=== PATIENT | male | born 1975 | race Caucasian/White ===

== ENCOUNTER 2022-11-24 07:23 | Outpatient (OUT) | payer OTHER, SELFPAY ==
--- NOTE | 2022-11-24 07:33 | XR_ITS ---
The [address] [address] Patient Name: RUSTY NGUYEN MRN: [id number] date: 1975 Sex: M Assigned Patient Location: [facility] Current Patient Location: [facility] Accession/Order Number: [id number] Exam Date: 11/24/2022 07:35 Report Date: 11/24/2022 08:54 At the request of: СЕРГЕЙ LOPEZ Procedure: XR ankle LT min 3V PROCEDURE: XR ankle LT min 3V COMPARISON: None. HISTORY: Chronic Pain Of Left Ankle M25.572 FINDINGS: BONES:No acute fracture or dislocation. Ankle instability with marked narrowing of the medial tibiotalar joint and widening of the lateral tibiotalar joint. Inversion of the hindfoot. Degenerative changes with marginal osteophyte formation. Enthesopathic spurring of the calcaneus. SOFT TISSUES:Negative. No visible soft tissue swelling. EFFUSION:None visible. OTHER: Negative. XR/XR ankle LT min 3V IMPRESSION: Degenerative changes with ankle inversion/instability Electronically authenticated by: TERRI GATES Date: 11/24/2022 08:54
== END 2022-11-24 07:24 | disposition home or self-care (01) ==
PROVIDERS: PCP Family Medicine; Visit Provider Family Medicine
DX: M25.572 Pain in left ankle and joints of left foot (principal); G89.29 Other chronic pain
CPT/HCPCS: 73610

== ENCOUNTER 2022-11-29 13:25 | Outpatient (OUT) | payer OTHER, SELFPAY ==
--- NOTE | 2022-11-29 | XR_ITS ---
[place] [address] Patient Name: RUSTY NGUYEN MRN: [id number] date: 1975 Sex: M Assigned Patient Location: [facility] Current Patient Location: [facility] Accession/Order Number: [id number] Exam Date: 11/29/2022 10:35 Report Date: 11/29/2022 15:38 At the request of: IZAIAH VALVERDE Procedure: XR ankle LT min 3V EXAM: XR ankle LT min 3V TECHNIQUE: AP, lateral and oblique views left ankle HISTORY: LEFT ANKLE PAIN COMPARISON: 11/24/2022 FINDINGS: Chronic asymmetric widening of the lateral and posterior aspect of the tibiotalar joint space. No acute fracture or dislocation. Moderate degenerative spurring of the ankle joint. Os trigonum accessory ossicle noted XR/XR ankle LT min 3V IMPRESSION: No acute interval change. 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
== END 2022-11-29 13:26 | disposition home or self-care (01) ==
LOC: RAD 13:25
PROVIDERS: PCP Family Medicine; Visit Provider Podiatrist Foot & Ankle Surgery
DX: M25.572 Pain in left ankle and joints of left foot (principal)
CPT/HCPCS: 73610

== ENCOUNTER 2022-12-13 15:27 | Outpatient (RCR) | payer OTHER, SELFPAY | END 2023-01-12 16:30 | disposition home or self-care (01) | LOC: PT 15:27 | PROVIDERS: PCP Family Medicine; Visit Provider Podiatrist Foot & Ankle Surgery | DX: M25.372 Other instability, left ankle (principal); M19.172 Post-traumatic osteoarthritis, left ankle and foot; M25.572 Pain in left ankle and joints of left foot; G89.29 Other chronic pain | CPT/HCPCS: 97110; 97112; 97161 ==